=== PATIENT | male | born 1990 | race African-American/Black ===

== ENCOUNTER 2018-05-09 19:22 | Emergency (ER) | payer SELFPAY ==
[~2018-05-09] VITALS: Ht 182.9 cm; Wt 72.0 kg
[2018-05-09] MEDS ORDERED: ONDANSETRON 4MG ODT PO ONE (20:45)
[2018-05-09 22:40] VITALS: BP 111/63
== END 2018-05-09 22:40 | disposition home or self-care (01) ==
LOC: ER 19:22
DX: R42 Dizziness and giddiness (principal); R11.2 Nausea with vomiting, unspecified
CPT/HCPCS: 99283; Q0162

== ENCOUNTER 2019-01-12 10:38 | Emergency (ER) | payer MEDICAID ==
[~2019-01-12] VITALS: Ht 182.9 cm; Wt 74.0 kg
[2019-01-12] MEDS ORDERED: IBUP-2271 PO (11:06)
[2019-01-12] MEDS ORDERED: KETOROLAC 15MG/ML VIAL IV ONE ×2 (12:30→15:45)
[2019-01-12] MEDS ORDERED: SODIUM CHLORIDE 0.9% 1,000 ML IV ONE (12:30)
[2019-01-12] MEDS ORDERED: ONDANSETRON HCL 4MG/2ML INJ IV ONE (12:30)
[2019-01-12 13:10] LABS: HEMATOCRIT. 47.4 % (42.0-52.0); HEMOGLOBIN. 15.7 g/dL (14.0-18.0); MEAN CORPUSCULAR HEMOGLOBIN 28.2 pg (28.0-32.0); MEAN CORPUSCULAR VOLUME 85.3 fL (80.0-94.0); MEAN PLATELET VOLUME 7.9 fl (7.4-10.4); PLATELET 268 x1000/uL (130-400); RED BLOOD CELL COUNT 5.57 mill/uL (4.7-6.1); RED CELL DISTRIBUTION WIDTH 13.7 % (11.6-14.6)
[2019-01-12 13:11] LABS: CHLORIDE 101 mEq/L (98-107)
[2019-01-12 13:50] LABS: ATYPICAL LYMPHOCYTES 1; PLATELET ESTIMATE NORMAL
[2019-01-12] MEDS ORDERED: ACETAMINOPHEN 325MG TABLET PO ONE (14:15)
[2019-01-12 14:17] LABS: CLARITY URINE CLEAR (CLEAR); COLOR URINE YELLOW (YELLOW); KETONES URINE 1+ (NEGATIVE); LEUKOCYTE ESTERASE URINE NEGATIVE (NEGATIVE); NITRITE URINE NEGATIVE (NEGATIVE); OCCULT BLOOD URINE NEGATIVE (NEGATIVE); PROTEIN URINE 1+ (NEGATIVE); SPECIFIC GRAVITY URINE 1.015 (1.005-1.030)
[2019-01-12 16:14] VITALS: BP 113/56
== END 2019-01-12 16:15 | disposition home or self-care (01) ==
LOC: ER 14:02
DX: J02.8 Acute pharyngitis due to other specified organisms (principal); M79.10 Myalgia, unspecified site; R50.9 Fever, unspecified; D72.829 Elevated white blood cell count, unspecified; E86.0 Dehydration; F12.10 Cannabis abuse, uncomplicated; D64.9 Anemia, unspecified; Z88.1 Allergy status to other antibiotic agents
CPT/HCPCS: 36415; 71045; 80048; 81003; 85025; 87070; 87430; 96374; 96375; 96376; 99284; J1885; J2405; J7030; Z7610

== ENCOUNTER 2019-03-23 23:22 | Emergency (ER) | payer MEDICAID ==
[~2019-03-23] VITALS: Ht 185.4 cm; Wt 69.0 kg
[~2019-03-23 23:22] MED LIST: IBUP-2271 PO
[2019-03-24] MEDS ORDERED: IBUPROFEN 600MG TABLET PO ONE (00:45)
[2019-03-24 00:48] VITALS: BP 117/78
== END 2019-03-24 02:32 | disposition home or self-care (01) ==
LOC: ER 23:22
DX: S49.82XA Other specified injuries of left shoulder and upper arm, initial encounter (principal); S89.82XA Other specified injuries of left lower leg, initial encounter; S29.8XXA Other specified injuries of thorax, initial encounter; V49.49XA Driver injured in collision with other motor vehicles in traffic accident, initial encounter; Y93.89 Activity, other specified; Y92.414 Local residential or business street as the place of occurrence of the external cause
CPT/HCPCS: 71045; 73030; 73562; 99283